=== PATIENT | male | born 1975 | race Caucasian/White ===

== ENCOUNTER 2016-08-03 20:22 | Emergency (ER) | payer OTHER ==
[~2016-08-03] VITALS: Ht 180.3 cm; Wt 86.6 kg
[2016-08-03] MEDS ORDERED: SUBO8MIS SL (20:27)
[2016-08-03] MEDS ORDERED: GI COCKTAIL 50ML BTL(HYOSCYAMINE/MAALOX/LIDOCAINE VISCOUS)(1:3:1) PO ONE (22:15)
[2016-08-03] MEDS ORDERED: PANTOPRAZOLE 40MG TAB (PROTONIX) PO ONE (22:15)
--- NOTE | 2016-08-03 22:19 | ED PDOC ---
Post-Departure Follow-Up Patient presents to the ED for evaluation of epigastric pain. He states that he has history of gastric ulcers and has previously done well on protonix. He states that he has been off it "for awhile" as he has done well, until yesterday. The remainder of his H&P and ROS are as noted in the T-sheet. At this time he does not want a complete work-up done. He states that he knows what this is and is just looking for a script for Protonix. He was medicated, with a GI cocktail and PO Protonix, prior to discharge. He is from [place] and is here temporarily for work. Discharge plans, including prescription for Protonix and worrisome signs to return to the ED for, were discussed. Questions answered. Patient states understanding to the instructions. JAZ NGUYEN. DELMY Aug 03, 2016 22:19
[2016-08-03] MEDS ORDERED: PANT40TA2 PO (22:22)
[2016-08-03] MEDS ORDERED: PROT1TAB2 PO (22:23)
[2016-08-03 22:58] VITALS: BP 125/76
== END 2016-08-03 22:51 | disposition home or self-care (01) ==
LOC: M ED 21:46
DX: R10.13 Epigastric pain (principal); F19.10 Other psychoactive substance abuse, uncomplicated; F17.200 Nicotine dependence, unspecified, uncomplicated; Z90.49 Acquired absence of other specified parts of digestive tract; Z90.89 Acquired absence of other organs; Z79.891 Long term (current) use of opiate analgesic

== ENCOUNTER 2016-11-23 14:24 | Emergency (ER) | payer OTHER ==
[~2016-11-23] VITALS: Ht 180.3 cm; Wt 81.8 kg
[~2016-11-23 14:24] MED LIST: PANT40TA2 PO; PROT1TAB2 PO; SUBO8MIS SL
[2016-11-23] MEDS ORDERED: SUBO12MI SL (15:28)
[2016-11-23] MEDS ORDERED: SULF1TAB23 PO (15:38)
[2016-11-23 15:43] VITALS: BP 127/84
== END 2016-11-23 15:45 | disposition home or self-care (01) ==
LOC: M ED 14:24
DX: L02.414 Cutaneous abscess of left upper limb (principal); A49.02 Methicillin resistant Staphylococcus aureus infection, unspecified site; F11.10 Opioid abuse, uncomplicated; F17.200 Nicotine dependence, unspecified, uncomplicated; Z79.899 Other long term (current) drug therapy

== ENCOUNTER 2017-04-05 13:28 | Emergency (ER) | payer OTHER | END 2017-04-05 17:30 | disposition left against medical advice (07) | LOC: M ED 13:28 | DX: R10.13 Epigastric pain (principal); K27.9 Peptic ulcer, site unspecified, unspecified as acute or chronic, without hemorrhage or perforation; Z79.899 Other long term (current) drug therapy | CPT/HCPCS: 74021 ==